=== PATIENT | female | born 1995 | race Caucasian/White ===

== ENCOUNTER 2018-12-10 16:33 | Outpatient (CLI) | payer OTHER ==
[2018-12-10] MEDS ORDERED: PRENATAL TABLE1 EAC1 PO (16:49)
[2018-12-10] MEDS ORDERED: SYNTHROID75 MCG PO (16:49)
== END 2018-12-11 13:19 | disposition home or self-care (01) ==
LOC: OBS/DEL 16:33
DX: O60.03 Preterm labor without delivery, third trimester (principal); O23.43 Unspecified infection of urinary tract in pregnancy, third trimester; O26.893 Other specified pregnancy related conditions, third trimester; K29.70 Gastritis, unspecified, without bleeding; Z34.83 Encounter for supervision of other normal pregnancy, third trimester

== ENCOUNTER 2018-12-28 06:26 | Inpatient (IN) | payer OTHER ==
[~2018-12-28] VITALS: Ht 149.9 cm; Wt 76.2 kg
[~2018-12-28 06:26] MED LIST: PRENATAL TABLE1 EAC1 PO; SYNTHROID75 MCG PO
== END 2018-12-30 13:20 | disposition home or self-care (01) | DRG 806 ==
LOC: OB/GYN 06:26 → LDR 06:26 → OB/GYN 20:02
PROVIDERS: ADMIT Obstetrics & Gynecology
PROC: 10E0XZZ Delivery of Products of Conception, External Approach (ICD-10-PCS; principal; 2018-12-28)
PROC: 0UQGXZZ Repair Vagina, External Approach (ICD-10-PCS; 2018-12-28)
PROC: 3E033VJ Introduction of Other Hormone into Peripheral Vein, Percutaneous Approach (ICD-10-PCS; 2018-12-28)
PROC: 4A1HXCZ Monitoring of Products of Conception, Cardiac Rate, External Approach (ICD-10-PCS; 2018-12-28)
DX: O71.4 Obstetric high vaginal laceration alone (principal); D62 Acute posthemorrhagic anemia; Z37.0 Single live birth; Z3A.39 39 weeks gestation of pregnancy; O90.81 Anemia of the puerperium